=== PATIENT | female | born 1960 | race Caucasian/White ===

== ENCOUNTER → 2017-01-10 | Outpatient (CLI) | payer OTHER | LOC: FIMAGING 09:27 | PROVIDERS: ATTEND Internal Medicine | DX: R41.82 Altered mental status, unspecified (principal) ==

== ENCOUNTER → 2017-01-28 | Outpatient (CLI) | payer OTHER | LOC: FIMAGING 10:17 | PROVIDERS: ATTEND Surgery | DX: Z12.39 Encounter for other screening for malignant neoplasm of breast (principal); N64.52 Nipple discharge | CPT/HCPCS: 76641; G0204 ==

== ENCOUNTER → 2017-02-16 | Outpatient (CLI) | payer OTHER ==
[~2017-02-16] MED LIST: GADOBUTROL 10 ML VIAL IVP ONE
== END ==
LOC: FIMAGING 06:59
PROVIDERS: ATTEND Surgery
DX: Z12.39 Encounter for other screening for malignant neoplasm of breast (principal); N64.52 Nipple discharge
CPT/HCPCS: 0159T; A9585; C8908

== ENCOUNTER → 2017-08-25 | Outpatient (CLI) | payer OTHER | LOC: FIMAGING 08:41 | PROVIDERS: ATTEND Surgery | DX: N64.52 Nipple discharge (principal) | CPT/HCPCS: 0159T; A9585; C8908 ==

== ENCOUNTER 2017-10-31 11:10 | Emergency (ER) | payer OTHER ==
[2017-10-31 11:25] VITALS: BP 114/84
--- NOTE | 2017-10-31 11:30 | EDPHY ---
H & P Stated Complaint: puncture wounds right thumb with pain and swelling from dogbite Time Seen by Provider: 10/31/17 11:11 HPI/ROS: 57-year-old female presents complaining of dog bite to her right thumb by her own dog last night when playing with a toy. Patient has noticed some mild redness and swelling states she sustained multiple bites to her thumb. Review of systems General no fever no chills no weakness HEENT no eye pain no eye discharge. No eye redness, no sore throat Respiratory no cough, no shortness of breath Cardiac no chest pain, no peripheral edema GI no abdominal pain, no diarrhea, no constipation, no nausea, no vomiting no flank pain, no hematuria, no dysuria Musculoskeletal no myalgias, no joint pain Heme no easy bruising, no easy bleeding Endo no polyuria, no polydipsia Skin no rashes, no pruritus Neuro no syncope, no dizziness, no headaches Psych is no suicidal ideation, no homicidal ideation Source: Patient Exam Limitations: No limitations - Personal History Current Tetanus Diphtheria and Acellular Pertussis (TDAP): Yes Tetanus Vaccine Date: 2013 - Medical/Surgical History Hx Asthma: No Hx Chronic Respiratory Disease: No Hx Diabetes: No Hx Cardiac Disease: Yes Hx Renal Disease: No Hx Cirrhosis: No Hx Alcoholism: No Hx HIV/AIDS: No Hx Splenectomy or Spleen Trauma: No Other PMH: dysautonomia, POTS - Family History Significant Family History: No pertinent family hx - Social History Smoking Status: Never smoked Alcohol Use: Occasionally Drug Use: None - Physical Exam Exam: 57-year-old female alert and oriented no acute distress nontoxic appearance, afebrile Atraumatic normocephalic Neck no JVD Lungs clear to auscultation, no respiratory distress Heart regular rate and rhythm Extremities no cyanosis clubbing edema Except Right hand-full range of motion of all digits, good capillary refill Right thumb several tiny bite ruby with mild erythema at dorsal aspect of PIP and MCP, however full range of motion no discharge and no gross swelling Constitutional: Initial Vital Signs Temperature (C) 36.7 C 10/31/17 11:19 Heart Rate 82 10/31/17 11:19 Respiratory Rate 14 10/31/17 11:19 Blood Pressure 114/84 H 10/31/17 11:19 O2 Sat (%) 97 10/31/17 11:19 O2 Delivery Mode Room Air Allergies/Adverse Reactions: No Known Allergies Allergy (Verified 10/31/17 11:18) Home Medications: Medication Instructions Recorded Cymbalta 06/25/09 Lipitor 20 mg 06/25/09 SYNTHROID 06/25/09 Amoxicillin/Clavulanate Pot 875 mg PO BID #20 tab 10/31/17 [Augmentin 875 MG TAB (*)] Medical Decision Making ED Course/Re-evaluation: Patient seen and evaluated for dog bite to right thumb Impression Dog bite right thumb with some evidence of early infection with mild erythema Plan Augmentin 875 twice daily times 10 days Follow-up in 1-2 days with primary care physician , return if worsening Differential Diagnosis: Differential diagnosis considered but not limited to: Simple dog bite, dog bite with cellulitis Departure - Departure Disposition: Home, Routine, Self-Care Clinical Impression: Dog bite of right thumb Condition: Good Instructions: Animal Bite (ED) Additional Instructions: Return if redness or swelling are dramatically worsening. Referrals: Ole Alvarez MD [Primary Care Provider] - As per Instructions Prescriptions: Amoxicillin/Clavulanate Pot [Augmentin 875 MG TAB (*)] 875 mg PO BID #20 tab
== END 2017-10-31 11:37 | disposition home or self-care (01) ==
LOC: CED 11:10
DX: S61.051A Open bite of right thumb without damage to nail, initial encounter (principal); W54.0XXA Bitten by dog, initial encounter

== ENCOUNTER → 2017-12-20 | Outpatient (CLI) | payer OTHER | LOC: CIMAGING 08:56 | PROVIDERS: ATTEND Internal Medicine | DX: D72.829 Elevated white blood cell count, unspecified (principal); R10.9 Unspecified abdominal pain; N28.89 Other specified disorders of kidney and ureter; K76.0 Fatty (change of) liver, not elsewhere classified | CPT/HCPCS: 76700-PO ==

== ENCOUNTER → 2017-12-24 | Outpatient (CLI) | payer OTHER ==
[~2017-12-24] MED LIST changes: -GADOBUTROL 10 ML VIAL IVP ONE; +IOPAMIDOL (ISOVUE-300) 100 ML BTL ONE
== END ==
LOC: CIMAGING 09:28
PROVIDERS: ATTEND Internal Medicine
DX: N28.89 Other specified disorders of kidney and ureter (principal)
CPT/HCPCS: 74178; Q9967; 82565-PO

== ENCOUNTER → 2018-02-07 | Outpatient (CLI) | payer OTHER | LOC: CIMAGING 10:32 | PROVIDERS: ATTEND Surgery | DX: Z12.31 Encounter for screening mammogram for malignant neoplasm of breast (principal) ==